=== PATIENT | female | born 1975 | race Two or more races ===

== ENCOUNTER 2021-02-13 16:04 | Emergency (ER) | payer OTHER ==
[~2021-02-13] VITALS: Ht 152.4 cm; Wt 59.0 kg
[2021-02-13] MEDS ORDERED: VASOTEC5 MG (18:28)
== END 2021-02-13 20:53 | disposition home or self-care (01) ==
LOC: ER 16:04
DX: R10.84 Generalized abdominal pain (principal); R31.9 Hematuria, unspecified; I10 Essential (primary) hypertension

== ENCOUNTER 2022-05-16 21:05 | Emergency (ER) | payer OTHER ==
[~2022-05-16] VITALS: Ht 157.5 cm; Wt 56.2 kg
[~2022-05-16 21:05] MED LIST: VASOTEC5 MG
== END 2022-05-16 23:39 | disposition home or self-care (01) ==
LOC: ER 21:05
DX: T78.40XA Allergy, unspecified, initial encounter (principal); X58.XXXA Exposure to other specified factors, initial encounter